=== PATIENT | male | born 1965 | race Caucasian/White ===

== ENCOUNTER 2023-09-24 07:30 | Day surgery (SDC) | payer BC ==
[2023-09-24] MEDS: Dextrose 5%-0.45% NaCl 1,000 ML IV SCH (07:46)
[2023-09-24] MEDS ORDERED: fentaNYL 100 MCG/2 ML SDV ONE (08:03)
[2023-09-24] MEDS ORDERED: Midazolam 1 MG/ML 2 ML SDV ONE (08:03)
[2023-09-24] MEDS: Midazolam 1 MG/ML 2 ML SDV IV ONE ×6 (08:41→08:49)
[2023-09-24] MEDS: fentaNYL 100 MCG/2 ML SDV IV ONE ×2 (08:41)
== END 2023-09-24 10:20 | disposition home or self-care (01) ==
LOC: DL.ENDO 07:30
PROVIDERS: ATTEND Internal Medicine Gastroenterology
DX: Z12.11 Encounter for screening for malignant neoplasm of colon (principal); E78.5 Hyperlipidemia, unspecified; E66.09 Other obesity due to excess calories; Z68.30 Body mass index [BMI] 30.0-30.9, adult; Z80.0 Family history of malignant neoplasm of digestive organs; Z79.899 Other long term (current) drug therapy; Z98.890 Other specified postprocedural states
CPT/HCPCS: J2250; J3010; J7042